=== PATIENT | female | born 1980 | race Two or more races ===

== ENCOUNTER 2018-11-15 15:59 | Emergency (ER) | payer OTHER ==
[~2018-11-15] VITALS: Ht 160 cm; Wt 77.1 kg
[2018-11-15 16:11] VITALS: BP 137/94
[2018-11-15] MEDS ORDERED: KETOROLAC TROMETHAMINE INJ 60 MG/2 ML VIAL IM ONE ×2 (16:30→16:32)
[2018-11-15] MEDS ORDERED: HYDROCODONE/APAP 10/325MG 1 EA TABLET PO ONE (16:30)
[2018-11-15] MEDS ORDERED: HYDROCODONE/APAP 10/325MG 1 EA TABLET ONE (16:33)
== END 2018-11-15 17:15 | disposition home or self-care (01) ==
LOC: ER 15:59
DX: M54.5 Low back pain (principal); G89.29 Other chronic pain; Z98.890 Other specified postprocedural states
CPT/HCPCS: 96372; 99283; J1885

== ENCOUNTER 2018-12-30 16:23 | Emergency (ER) | payer OTHER ==
[~2018-12-30] VITALS: Ht 160 cm; Wt 74.8 kg
[2018-12-30 16:30] VITALS: BP 125/87
[2018-12-30] MEDS ORDERED: MORPHINE SULFATE INJ 4 MG/ML DISP.SYRIN ONE (16:48)
[2018-12-30] MEDS ORDERED: KETOROLAC TROMETHAMINE INJ 30 MG/ML VIAL ONE (16:48)
[2018-12-30] MEDS ORDERED: KETOROLAC TROMETHAMINE INJ 30 MG/ML VIAL IM ONE (17:00)
[2018-12-30] MEDS ORDERED: MORPHINE SULFATE INJ 2 MG/ML DISP.SYRIN IM ONE (17:00)
== END 2018-12-30 17:14 | disposition home or self-care (01) ==
LOC: ER 16:24
DX: M54.5 Low back pain (principal); G89.29 Other chronic pain; Z98.890 Other specified postprocedural states
CPT/HCPCS: 96372 ×2; 99283; J1885; J2270